=== PATIENT | male | born 1960 | race Caucasian/White ===

== ENCOUNTER 2021-10-14 08:17 | Inpatient (IN) | payer MEDICARE, MEDICAID ==
[2021-10-14] VITALS (25 sets, daily range): BP systolic 100–144; BP diastolic 56–88
[~2021-10-14] VITALS: Ht 165.1 cm; Wt 69.6 kg
[~2021-10-14 08:17] MED LIST: ASCO-157 PO; CALC200T PO; FLUT16SP2 BOTHNARES; LEVO100T PO; LORA10CA PO; MULT-1085 PO; MV-M1TAB19 PO; ceFOXitin 2GM-NS 100mL ADDvant 100 ML IV ONE; famotidine 20mg tablet PO ONE; ringers solution, lacted 1,000 ML IV SCH
[2021-10-14] MEDS ORDERED: BUPIVACAINE liposomal/PF 13.3 MG/ML vial IM ONE (09:13)
[2021-10-14] MEDS ORDERED: BUPIVAcaine 0.5% inj/PF 30 ML ONE (09:13)
[2021-10-14] MEDS ORDERED: LIDOcaine 2% (20mg/ml) 5ml vial ONE (09:16)
[2021-10-14] MEDS ORDERED: propofol inj 20 ML IV ONE (09:16)
[2021-10-14] MEDS ORDERED: rocuronium 10mg/ml inj IV ONE ×2 (09:17→11:18)
[2021-10-14] MEDS ORDERED: ondansetron/PF 4mg/2ml inj ONE (09:22)
[2021-10-14] MEDS ORDERED: glycopyrrolate 0.2mg/ml inj ONE (09:22)
[2021-10-14 09:46] LABS: BASOPHILS % (AUTO) 0.2 % (0-1); EOSINOPHILS % (AUTO) 0.4 % (0-6); LYMPHOCYTES # (AUTO) 1.2 X10'3 (1.1-4.8); LYMPHOCYTES % (AUTO) 17.1 % (21-51); MEAN CORPUSCULAR HEMOGLOBIN 33.9 PG (27.0-31.0); MEAN CORPUSCULAR HGB CONC 34.4 g/dL (33.0-36.5); MEAN CORPUSCULAR VOLUME 98.5 FL (78-98); MEAN PLATELET VOLUME 7.8 FL (7.4-10.4); MONOCYTES # (AUTO) 0.8 X10'3 (0-0.9); MONOCYTES % (AUTO) 11.1 % (2-12); NEUTROPHILS # (AUTO) 5.1 X10'3 (1.8-7.7); NEUTROPHILS % (AUTO) 71.2 % (42-75); PRE OP HEMATOCRIT 44.7 % (42.0-52.0); PRE OP HEMOGLOBIN 15.4 g/dL (14.0-17.9); PRE OP PLATELET COUNT 229 X10'3 (140-440); RED BLOOD COUNT 4.53 X10'6 (4.70-6.10); RED CELL DISTRIBUTION WIDTH 13.5 % (11.5-14.5)
[2021-10-14] MEDS ORDERED: dexamethasone sod phosphate 10mg/ml inj ONE (10:07)
[2021-10-14] MEDS ORDERED: neostigmine methylsulfate 1 MG/ML 10ml vial ONE (10:07)
[2021-10-14] MEDS ORDERED: ePHEDrine 50MG/ML INJ. ONE (10:07)
[2021-10-14] MEDS ORDERED: sevoflurane 250ml liquid IH ONE (10:07)
[2021-10-14 10:12] LABS: ALBUMIN 3.8 G/DL (3.4-5.0); ALBUMIN/GLOBULIN RATIO 1.2 (1.1-1.5); BLOOD UREA NITROGEN 16 MG/DL (7-18); BUN/CREATININE RATIO 11.3 (5.4-32.0); CALCIUM 8.4 MG/DL (8.5-10.1); CHLORIDE 107 MMOL/L (99-107); CREATININE 1.41 MG/DL (0.60-1.10); PRE OP ALT 23 U/L (30-65); PRE OP ANION GAP 11 (8-16); PRE OP AST 17 U/L (10-37); PRE OP BILIRUB, TOTAL 0.8 MG/DL (0.0-1.0); PRE OP GLUCOSE 96 MG/DL (70-104); PRE OP POTASSIUM 3.4 MMOL/L (3.4-5.1); PRE OP SODIUM 143 MMOL/L (135-145); TOTAL CARBON DIOXIDE 24.7 MMOL/L (24-32); TOTAL PROTEIN 7.1 G/DL (6.4-8.2); eGFR 51 ML/MIN
[2021-10-14] MEDS ORDERED: fentaNYL /PF 50mcg/ml 5ml ampule ONE (10:13)
[2021-10-14] MEDS ORDERED: MIDAZolam 1 MG/ML 5ML VIAL ONE (10:13)
[2021-10-14] MEDS ORDERED: morphine 2 MG/ML inj. syringe IV PRN (11:05)
[2021-10-14] MEDS ORDERED: ondansetron/PF 4mg/2ml inj IV PRN (11:05)
[2021-10-14] MEDS ORDERED: ringers solution, lacted 1,000 ML IV SCH (11:05)
[2021-10-14] MEDS ORDERED: fentaNYL/PF 50MCG/1 ML 2ML syringe IV PRN ×2 (11:05)
[2021-10-14] MEDS ORDERED: hydrALAZINE 20mg/ml inj. IV PRN (11:05)
[2021-10-14] MEDS ORDERED: labetalol 20mg/4ml (5mg/ml) syringe IV PRN (11:05)
[2021-10-14] MEDS ORDERED: morphine 4 MG/ML inj SYRINge IV PRN (11:05)
[2021-10-14] MEDS ORDERED: magnesium 2GM in 50ml NS 50 ML IV PRN (11:55)
[2021-10-14] MEDS ORDERED: potassium CL 10mEq/100ml bag 100 ML IV PRN (11:55)
[2021-10-14] MEDS ORDERED: magnesium 4gm in 100ml NS 100 ML IV PRN (11:55)
[2021-10-14] MEDS ORDERED: magnesium Cl slow-release 64mg tablet PO PRN (11:55)
[2021-10-14] MEDS ORDERED: potassium Cl 20 mEq SR tablet PO PRN ×2 (11:55)
--- NOTE | 2021-10-14 12:44 | NUR ---
PT NON VERBAL, ZERO PAIN. 10 LITERS ON MASK, ISLAND DRESSING SPOTTY MARKED AND WILL CONTINUE TO ASSESS, F/C, IV 20G RIGHT WRIST, VSS
--- NOTE | 2021-10-14 12:54 | NUR ---
Received from OR via BED , accompanied by Anesthesiologist DENNIS and report given by Anesthesiolgist. PATIENT NON VERBAL, SHOW NO PAIN. VSS, ISLAND BANDAGE LEATY CIRCLED AND WILL CONTINUE TO ASSESS, F/C, 20G IN RIGHT WRIST Addendum: 10/14/21 at 1256 by Fernanda Cuevas RN Amended: Links added.
--- NOTE | 2021-10-14 13:40 | NUR ---
CALLED TO GIVE REPORT TO SURGICAL. NURSE IS ON LUNCH
--- NOTE | 2021-10-14 14:27 | NUR ---
Patient in room [facility]. I have received report from AWILDA MARTINEZ in recovery and had the opportunity to ask questions and assume patient care.
--- NOTE | 2021-10-14 14:27 | NUR ---
patient arrived with caregiver. Pt has Developmental delay, unable to clearly assess pain, per caregiver, he does not appear in pain. Post op VS started, stable.
[2021-10-14] MEDS: normal saline 1000ml 1,000 ML IV SCH (14:56)
[2021-10-14] MEDS: morphine 2 MG/ML inj. syringe IV PRN ×2 (15:19→19:54)
[2021-10-14 15:48] LABS: MAGNESIUM 1.3 MG/DL (1.5-2.4); POTASSIUM 3.5 MMOL/L (3.5-5.1)
--- NOTE | 2021-10-14 18:00 | NUR ---
Patient in room [facility]. I have received report from JUAN Ocasio and had the opportunity to ask questions and assume patient care.
[2021-10-14] MEDS: K and/or MAG REPLACEMENT MC SCH (20:00)
[2021-10-15] VITALS: BP 102/59
[2021-10-15] MEDS: normal saline 1000ml 1,000 ML IV SCH ×4 (00:05→14:25)
[2021-10-15] MEDS: morphine 2 MG/ML inj. syringe IV PRN ×3 (04:02→10:22)
--- NOTE | 2021-10-15 05:15 | NUR ---
placed FC due to retention and GI surgery. Pt tolerated well.
--- NOTE | 2021-10-15 06:14 | NUR ---
Patient in room [facility]. I have received report from Maryse MARTINEZ and had the opportunity to ask questions and assume patient care.
[2021-10-15 06:37] LABS: BASOPHILS % (AUTO) 0.1 % (0-1); EOSINOPHILS % (AUTO) 0 % (0-6); HEMATOCRIT 32.7 % (42.0-52.0); HEMOGLOBIN 11.3 g/dl (14.0-17.9); LYMPHOCYTES # (AUTO) 0.7 X10'3 (1.1-4.8); LYMPHOCYTES % (AUTO) 4.8 % (21-51); MEAN CORPUSCULAR HEMOGLOBIN 33.9 PG (27.0-31.0); MEAN CORPUSCULAR HGB CONC 34.5 g/dL (33.0-36.5); MEAN CORPUSCULAR VOLUME 98.2 FL (78-98); MONOCYTES # (AUTO) 1.7 X10'3 (0-0.9); MONOCYTES % (AUTO) 12.2 % (2-12); NEUTROPHILS # (AUTO) 11.7 X10'3 (1.8-7.7); NEUTROPHILS % (AUTO) 82.9 % (42-75); PLATELET COUNT 209 X10'3 (140-440); RED BLOOD COUNT 3.33 X10'6 (4.70-6.10); RED CELL DISTRIBUTION WIDTH 13.9 % (11.5-14.5); WHITE BLOOD COUNT 14.1 X10'3 (4.5-11.0)
[2021-10-15] MEDS ORDERED: LIDOcaine 2% 10ml TOPICAL JELLY (Urojet) TP ONE (07:10)
[2021-10-15 07:13] LABS: ALBUMIN 2.5 G/DL (3.4-5.0); ANION GAP 12 (8-16); BLOOD UREA NITROGEN 17 MG/DL (7-18); BUN/CREATININE RATIO 12.5 (5.4-32.0); CALCIUM 7.5 MG/DL (8.5-10.1); CHLORIDE 109 MMOL/L (99-107); CREATININE 1.36 MG/DL (0.60-1.10); GLUCOSE 130 MG/DL (70-104); POTASSIUM 3.8 MMOL/L (3.5-5.1); SODIUM 143 MMOL/L (135-145); TOTAL CARBON DIOXIDE 21.6 MMOL/L (24-32); eGFR 53 ML/MIN
[2021-10-15 08:00] VITALS: BP 91/54
[2021-10-15] MEDS: K and/or MAG REPLACEMENT MC SCH ×2 (08:00→19:10)
[2021-10-15 11:00] VITALS: BP 129/88
[2021-10-15] MEDS ORDERED: normal saline 500ml IV soln 500 ML IV ONE (12:55)
[2021-10-15] MEDS: HYDROcodone/acetaminophen 10/325mg tab PO PRN ×3 (14:25→23:22)
[2021-10-15 18:00] VITALS: BP 93/62
[2021-10-16] VITALS: BP 101/59
[2021-10-16] MEDS: normal saline 1000ml 1,000 ML IV SCH ×3 (00:21→22:35)
[2021-10-16] MEDS: ondansetron/PF 4mg/2ml inj IV PRN (00:57)
[2021-10-16 04:00] VITALS: BP 96/54
[2021-10-16 04:12] LABS: BASOPHILS % (AUTO) 0.1 % (0-1); EOSINOPHILS % (AUTO) 0 % (0-6); HEMATOCRIT 28.8 % (42.0-52.0); HEMOGLOBIN 9.9 g/dl (14.0-17.9); LYMPHOCYTES # (AUTO) 0.7 X10'3 (1.1-4.8); LYMPHOCYTES % (AUTO) 5.6 % (21-51); MEAN CORPUSCULAR HEMOGLOBIN 34.4 PG (27.0-31.0); MEAN CORPUSCULAR HGB CONC 34.4 g/dL (33.0-36.5); MEAN CORPUSCULAR VOLUME 99.8 FL (78-98); MEAN PLATELET VOLUME 8.1 FL (7.4-10.4); MONOCYTES # (AUTO) 1.1 X10'3 (0-0.9); MONOCYTES % (AUTO) 8.5 % (2-12); NEUTROPHILS % (AUTO) 85.8 % (42-75); PLATELET COUNT 190 X10'3 (140-440); RED BLOOD COUNT 2.89 X10'6 (4.70-6.10); RED CELL DISTRIBUTION WIDTH 13.6 % (11.5-14.5); WHITE BLOOD COUNT 12.8 X10'3 (4.5-11.0)
[2021-10-16] MEDS: levoFLOXACIN-Levaquin 500mg/D5 100 ML IV SCH (04:15)
[2021-10-16 04:18] LABS: ALBUMIN 2.1 G/DL (3.4-5.0); ANION GAP 12 (8-16); BLOOD UREA NITROGEN 17 MG/DL (7-18); CALCIUM 7.4 MG/DL (8.5-10.1); CHLORIDE 108 MMOL/L (99-107); CREATININE 1.21 MG/DL (0.60-1.10); GLUCOSE 99 MG/DL (70-104); MAGNESIUM 1.8 MG/DL (1.5-2.4); POTASSIUM 3.6 MMOL/L (3.5-5.1); SODIUM 143 MMOL/L (135-145); TOTAL CARBON DIOXIDE 23.3 MMOL/L (24-32); eGFR 61 ML/MIN
[2021-10-16] MEDS: HYDROcodone/acetaminophen 10/325mg tab PO PRN ×2 (04:20→16:19)
--- NOTE | 2021-10-16 05:18 | NUR ---
CALLED AND LEFT [facility] [place] PEREZ TO ANSWERING SERVICE REGARDING KUB AND CXR RESULTS
[2021-10-16] MEDS: metroNIDAZOLE-Flagyl 500mg/NS 100ml IVPB IV SCH ×2 (05:45→16:19)
--- NOTE | 2021-10-16 06:29 | NUR ---
Patient in room [facility]. I have received report from JUAN Cantrell and had the opportunity to ask questions and assume patient care.
[2021-10-16 07:00] VITALS: BP 102/62
[2021-10-16] MEDS: morphine 2 MG/ML inj. syringe IV PRN ×2 (07:17→22:26)
--- NOTE | 2021-10-16 07:45 | NUR ---
14 setswana NG tube placed per Dr Vinay baldwin. Pt tolerated well, tube secured with silk tape. No output noted at this time, slight amount of sanguinous drainage noted in tubing. Will continue to monitor. Addendum: 10/16/21 at 0747 by Criss Meredith RN NG tube placed to right nare
--- NOTE | 2021-10-16 07:50 | NUR ---
0600 PT LYING IN BED. NO DISTRESS NOTED. PT DENIES PAIN . GERIATRIC NURSE AT BEDSIDE
[2021-10-16] MEDS ORDERED: piperacillin/tazo 3.375gm/50ml 50 ML IV SCH (08:00)
[2021-10-16] MEDS: K and/or MAG REPLACEMENT MC SCH ×2 (08:00→20:00)
[2021-10-16 11:00] VITALS: BP 104/57
--- NOTE | 2021-10-16 16:10 | NUR ---
SHANNAN DC'd per Dr Mclean orders. Pt tolerated well. Will continue to monitor.
[2021-10-16] MEDS: levoTHYROXINE 100mcg tablet PO SCH (17:00)
[2021-10-16 18:00] VITALS: BP 108/59
--- NOTE | 2021-10-16 18:17 | NUR ---
Problems reprioritized. Patient report given, questions answered & plan of care reviewed with JUAN Luong.
--- NOTE | 2021-10-16 18:54 | NUR ---
Patient in room [facility]. I have received report from PATI MARTINEZ and had the opportunity to ask questions and assume patient care. Addendum: 10/16/21 at 1855 by Cherise Vick RN Amended: Links added.
--- NOTE | 2021-10-16 19:06 | NUR ---
Patient in room [facility]. I have received report from JUAN Kahn and had the opportunity to ask questions and assume patient care.
[2021-10-16] MEDS: enoxaparin 40mg/0.4ml syringe SUBCUT SCH (22:27)
[2021-10-17] VITALS: BP 113/61
[2021-10-17] MEDS: metroNIDAZOLE-Flagyl 500mg/NS 100ml IVPB IV SCH ×2 (00:05→07:42)
[2021-10-17] MEDS: morphine 2 MG/ML inj. syringe IV PRN (02:50)
--- NOTE | 2021-10-17 02:55 | NUR ---
medicated for complaint of pain 01/29. repositioned to comfort.
--- NOTE | 2021-10-17 06:23 | NUR ---
Patient in room [facility]. I have received report from JUAN Luong and had the opportunity to ask questions and assume patient care.
--- NOTE | 2021-10-17 06:30 | NUR ---
Problems reprioritized. Patient report given, questions answered & plan of care reviewed with PATI MARTINEZ. Addendum: 10/17/21 at 0630 by Cherise Vick RN Amended: Links added.
--- NOTE | 2021-10-17 06:45 | NUR ---
Problems reprioritized. Patient report given, questions answered & plan of care reviewed with JUAN Kahn.
[2021-10-17 07:17] LABS: BASOPHILS % (AUTO) 0.1 % (0-1); EOSINOPHILS # (AUTO) 0.1 X10'3 (0-0.9); EOSINOPHILS % (AUTO) 0.6 % (0-6); HEMATOCRIT 27.7 % (42.0-52.0); HEMOGLOBIN 9.5 g/dl (14.0-17.9); LYMPHOCYTES # (AUTO) 1.1 X10'3 (1.1-4.8); LYMPHOCYTES % (AUTO) 10.3 % (21-51); MEAN CORPUSCULAR HEMOGLOBIN 34.3 PG (27.0-31.0); MEAN CORPUSCULAR HGB CONC 34.4 g/dL (33.0-36.5); MEAN CORPUSCULAR VOLUME 99.9 FL (78-98); MEAN PLATELET VOLUME 8.4 FL (7.4-10.4); MONOCYTES # (AUTO) 1.1 X10'3 (0-0.9); PLATELET COUNT 182 X10'3 (140-440); RED BLOOD COUNT 2.77 X10'6 (4.70-6.10); RED CELL DISTRIBUTION WIDTH 13.5 % (11.5-14.5); WHITE BLOOD COUNT 10.3 X10'3 (4.5-11.0)
[2021-10-17 07:26] LABS: ALBUMIN 1.9 G/DL (3.4-5.0); ANION GAP 13 (8-16); BLOOD UREA NITROGEN 18 MG/DL (7-18); BUN/CREATININE RATIO 15.9 (5.4-32.0); CALCIUM 7.6 MG/DL (8.5-10.1); CHLORIDE 111 MMOL/L (99-107); CREATININE 1.13 MG/DL (0.60-1.10); GLUCOSE 75 MG/DL (70-104); MAGNESIUM 1.4 MG/DL (1.5-2.4); POTASSIUM 3.7 MMOL/L (3.5-5.1); SODIUM 146 MMOL/L (135-145); TOTAL CARBON DIOXIDE 22.3 MMOL/L (24-32); eGFR 66 ML/MIN
[2021-10-17] MEDS: levoTHYROXINE 100mcg tablet PO SCH (07:42)
[2021-10-17 07:44] VITALS: BP 110/59
[2021-10-17] MEDS: K and/or MAG REPLACEMENT MC SCH ×3 (08:00→19:56)
[2021-10-17] MEDS: HYDROcodone/acetaminophen 10/325mg tab PO PRN (08:43)
[2021-10-17] MEDS: levoFLOXACIN-Levaquin 500mg/D5 100 ML IV SCH (08:43)
[2021-10-17 11:00] VITALS: BP 101/61
[2021-10-17] MEDS: normal saline 1000ml 1,000 ML IV SCH ×2 (11:09→21:53)
[2021-10-17] MEDS ORDERED: magnesium 4gm in 100ml NS 100 ML IV PRN (14:10)
[2021-10-17] MEDS ORDERED: magnesium 2GM in 50ml NS 50 ML IV PRN (14:10)
[2021-10-17] MEDS ORDERED: potassium Cl 20 mEq SR tablet PO PRN ×2 (14:10)
[2021-10-17] MEDS ORDERED: potassium CL 10mEq/100ml bag 100 ML IV PRN (14:10)
[2021-10-17] MEDS ORDERED: magnesium Cl slow-release 64mg tablet PO PRN (14:10)
--- NOTE | 2021-10-17 14:53 | NUR ---
FC DC'd per Dr Mclean orders. 450 straw colored urine drained. Pt tolerated well. Condom cath placed to monitor post FC removal output. Will continue to monitor.
--- NOTE | 2021-10-17 18:35 | NUR ---
Problems reprioritized. Patient report given, questions answered & plan of care reviewed with JUAN Luong.
--- NOTE | 2021-10-17 18:40 | NUR ---
Patient in room [facility]. I have received report from PATI MARTINEZ and had the opportunity to ask questions and assume patient care. Addendum: 10/17/21 at 1840 by Cherise Vick RN Amended: Links added.
[2021-10-17] MEDS: enoxaparin 40mg/0.4ml syringe SUBCUT SCH (19:56)
[2021-10-18] VITALS: BP 111/58
--- NOTE | 2021-10-18 00:15 | NUR ---
complete bed bath and lien change done. bladder scanned 400 in bladder. pt had been denying need for pain medication. after completion of bath etc straight cath procedure done noted took 5 minutes with pt deep breathing before cath place passed sphincter and obtained concentrated dark brownish yellow urine. 400 out.
--- NOTE | 2021-10-18 00:45 | NUR ---
condom cath replaced back on pt after bladder emptied of urine.
[2021-10-18] MEDS: morphine 2 MG/ML inj. syringe IV PRN ×4 (00:50→12:44)
--- NOTE | 2021-10-18 00:50 | NUR ---
after everything completed pt then said ok for pain medication and medicated with iv morphine for the pain.
[2021-10-18] MEDS: ondansetron/PF 4mg/2ml inj IV PRN (04:14)
--- NOTE | 2021-10-18 04:16 | NUR ---
pt medicated for complaint of pain with morphine had peed 30cc in condom cath since straight cathed. pt noted belching air up from his stomach then complaint of nausea and medicated with zofran for this.
[2021-10-18 06:06] LABS: BASOPHILS % (AUTO) 0.2 % (0-1); EOSINOPHILS % (AUTO) 0.2 % (0-6); HEMATOCRIT 27.4 % (42.0-52.0); HEMOGLOBIN 9.3 g/dl (14.0-17.9); LYMPHOCYTES # (AUTO) 0.6 X10'3 (1.1-4.8); LYMPHOCYTES % (AUTO) 6.2 % (21-51); MEAN CORPUSCULAR HEMOGLOBIN 34.4 PG (27.0-31.0); MEAN CORPUSCULAR VOLUME 101.1 FL (78-98); MEAN PLATELET VOLUME 8.1 FL (7.4-10.4); MONOCYTES # (AUTO) 1.1 X10'3 (0-0.9); MONOCYTES % (AUTO) 10.7 % (2-12); NEUTROPHILS # (AUTO) 8.3 X10'3 (1.8-7.7); NEUTROPHILS % (AUTO) 82.7 % (42-75); PLATELET COUNT 191 X10'3 (140-440); RED CELL DISTRIBUTION WIDTH 13.7 % (11.5-14.5); WHITE BLOOD COUNT 10.1 X10'3 (4.5-11.0)
--- NOTE | 2021-10-18 06:16 | NUR ---
Problems reprioritized. Patient report given, questions answered & plan of care reviewed with JUAN GUZMAN. Addendum: 10/18/21 at 0618 by Cherise Vick RN Amended: Links added.
[2021-10-18 06:20] LABS: ALBUMIN 1.8 G/DL (3.4-5.0); ANION GAP 12 (8-16); BLOOD UREA NITROGEN 21 MG/DL (7-18); BUN/CREATININE RATIO 17.4 (5.4-32.0); CALCIUM 7.4 MG/DL (8.5-10.1); CHLORIDE 113 MMOL/L (99-107); CREATININE 1.21 MG/DL (0.60-1.10); GLUCOSE 89 MG/DL (70-104); MAGNESIUM 1.6 MG/DL (1.5-2.4); POTASSIUM 3.5 MMOL/L (3.5-5.1); SODIUM 148 MMOL/L (135-145); TOTAL CARBON DIOXIDE 22.7 MMOL/L (24-32); eGFR 61 ML/MIN
[2021-10-18 07:00] VITALS: BP 112/62
[2021-10-18] MEDS: normal saline 1000ml 1,000 ML IV SCH ×2 (07:23→20:35)
[2021-10-18] MEDS: levoTHYROXINE 100mcg tablet PO SCH (08:00)
[2021-10-18] MEDS: K and/or MAG REPLACEMENT MC SCH ×2 (08:00→20:00)
[2021-10-18] MEDS: levoFLOXACIN-Levaquin 500mg/D5 100 ML IV SCH (08:50)
[2021-10-18] MEDS ORDERED: bisacodyl 10mg suppository rectal RC STA (09:28)
[2021-10-18 11:00] VITALS: BP 101/58
--- NOTE | 2021-10-18 13:00 | NUR ---
patient began coughing while drinking water. only got 2 sips in when he began throwing up. I do not beleive this to be intolerance to clear liquids, based on very small amount water drank and immediately threw up. Pt does not report nausea, and is slightly coughing still. Will monitor through shift for tolerance/intolerance
[2021-10-18] MEDS: metroNIDAZOLE-Flagyl 500mg/NS 100ml IVPB IV SCH (14:57)
--- NOTE | 2021-10-18 16:00 | NUR ---
pt began coughing, requested RT to take a look and listen and give his opinion. O2 was found in the 80's, he placed him on 5L NC, O2 sats up to 91%. Will titrate O2 down as able to. chest xray was ordered and Mucinex started.
[2021-10-18] MEDS: guaiFENesin ER 600mg tablet PO SCH ×2 (17:13→20:38)
--- NOTE | 2021-10-18 18:11 | NUR ---
O2 sat 91% on 5 L NC.
--- NOTE | 2021-10-18 18:11 | NUR ---
Problems reprioritized. Patient report given, questions answered & plan of care reviewed with Cherise MARTINEZ.
--- NOTE | 2021-10-18 18:30 | NUR ---
Patient in room [facility]. I have received report from JUAN GUZMAN and had the opportunity to ask questions and assume patient care. Addendum: 10/18/21 at 1830 by Cherise Vick RN Amended: Links added.
--- NOTE | 2021-10-18 19:11 | NUR ---
Patient in room [facility]. I have received report from JUAN Ocasio and had the opportunity to ask questions and assume patient care.
[2021-10-18 20:00] VITALS: BP 104/70
[2021-10-18] MEDS: HYDROcodone/acetaminophen 10/325mg tab PO PRN (20:37)
[2021-10-18] MEDS: enoxaparin 40mg/0.4ml syringe SUBCUT SCH (20:42)
[2021-10-18] MEDS ORDERED: VANCOMYCIN 1,500MG inj. 1,500 MG in normal saline 500ml IV soln 300 ML IV ONE (21:35)
[2021-10-19] VITALS: BP 99/56
--- NOTE | 2021-10-19 01:30 | NUR ---
second iv started x1 stick for additional ordered iv antibiotics. blankets removed from pt and ice applied for pt comfort due to fever. pt using is poorly despite a lot of teaching and reinforcement barely able to get ball to 250, and using flutter valve fairly well. pt wants to blow instead of suck on the Is unit developmentally delayed seems difficult for him to understand and do but continue to teach and reinforce teaching. caregiver who is pt's neighbor also assisting in trying to help teach and get pt to use it when staff in the room and when we are not.
[2021-10-19] MEDS: metroNIDAZOLE-Flagyl 500mg/NS 100ml IVPB IV SCH (01:47)
[2021-10-19] MEDS: HYDROcodone/acetaminophen 10/325mg tab PO PRN ×2 (01:50→19:44)
[2021-10-19] MEDS: piperacillin/tazo 3.375gm/50ml 50 ML IV SCH ×3 (02:19→16:36)
--- NOTE | 2021-10-19 05:14 | NUR ---
temp 98.7 after cooling measures done.
--- NOTE | 2021-10-19 05:41 | NUR ---
Student documentation: I have reviewed and agree with all interventions, assessments performed and documented by LAUREN URIBE RN STUDENT.Student documentation: I have reviewed and agree with all interventions, assessments performed and documented by LAUREN DERAS RN STUDENT. Addendum: 10/19/21 at 0542 by Cherise Vick RN Amended: Links added.
--- NOTE | 2021-10-19 06:03 | NUR ---
NOTED PT'S ALBUMIN IS 1.8 PT IS SHOWING SIGNS OF GENERALIZED edema. pt c/o feeling dry noted urine dark concentrated yellow starting to lighten up in color now and pt's po intake was 1150 with iv ns intake of 1815 in 24 hours and output mold shifter concentrated urine of 650cc mold shifter 300 days total 950cc 24 hours equal 2014 extra fluid but pt's phelm vert thick and difficult for pt to bring up just starting to loosen up. sodium climbing up to 148 this information given to Dorys Riggs to relay to [facility] hospitalist.
--- NOTE | 2021-10-19 06:21 | NUR ---
Problems reprioritized. Patient report given, questions answered & plan of care reviewed with DAVON MARTINEZ. Addendum: 10/19/21 at 0621 by Cherise Vick RN Amended: Links added.
--- NOTE | 2021-10-19 06:21 | NUR ---
Problems reprioritized. Patient report given, questions answered & plan of care reviewed with JUAN Saul.
[2021-10-19 06:42] LABS: BASOPHILS % (AUTO) 0.1 % (0-1); EOSINOPHILS % (AUTO) 0 % (0-6); HEMOGLOBIN 9.5 g/dl (14.0-17.9); LYMPHOCYTES # (AUTO) 0.7 X10'3 (1.1-4.8); LYMPHOCYTES % (AUTO) 6.2 % (21-51); MEAN CORPUSCULAR HEMOGLOBIN 34.2 PG (27.0-31.0); MEAN CORPUSCULAR VOLUME 100.6 FL (78-98); MEAN PLATELET VOLUME 8.5 FL (7.4-10.4); MONOCYTES # (AUTO) 1.1 X10'3 (0-0.9); MONOCYTES % (AUTO) 10.1 % (2-12); NEUTROPHILS % (AUTO) 83.6 % (42-75); PLATELET COUNT 186 X10'3 (140-440); RED BLOOD COUNT 2.79 X10'6 (4.70-6.10); RED CELL DISTRIBUTION WIDTH 13.8 % (11.5-14.5); WHITE BLOOD COUNT 10.8 X10'3 (4.5-11.0)
--- NOTE | 2021-10-19 06:45 | NUR ---
Patient in room [facility]A. I have received report from JUAN JIANG and had the opportunity to ask questions and assume patient care.
[2021-10-19 07:00] VITALS: BP 99/62
[2021-10-19 07:49] LABS: ALBUMIN 1.8 G/DL (3.4-5.0); ANION GAP 15 (8-16); BLOOD UREA NITROGEN 25 MG/DL (7-18); BUN/CREATININE RATIO 19.4 (5.4-32.0); CALCIUM 7.6 MG/DL (8.5-10.1); CHLORIDE 114 MMOL/L (99-107); CREATININE 1.29 MG/DL (0.60-1.10); GLUCOSE 109 MG/DL (70-104); MAGNESIUM 1.5 MG/DL (1.5-2.4); POTASSIUM 3.6 MMOL/L (3.5-5.1); SODIUM 150 MMOL/L (135-145); eGFR 56 ML/MIN
[2021-10-19] MEDS: K and/or MAG REPLACEMENT MC SCH ×2 (08:00→20:00)
--- NOTE | 2021-10-19 09:09 | NUR ---
Initial: Pt admitted w/ suspicious colonic mass, underwent open resection of transverse and splenic flexure of the colon this admit per EMR. Pt has been advanced to Clear Liquids 10/18 w/ 25% intake of first meal. Recommend continuing to advance to Low fiber diet as medically indicated per MD discretion. LBM 10/18. Limited nutrition interventions at this time, will continue to monitor. Recs: 1. Advance to Low fiber diet as medically indicated per MD discretion 2. Monitor need for ONS upon diet advancement 3. Bowel care per MD 4. Weekly wts Addendum: 10/19/21 at [address] Amended: Links added.
[2021-10-19] MEDS ORDERED: VANCOMYCIN 1GM/200ML IVPB 200 ML IV SCH (10:00)
[2021-10-19] MEDS: levoTHYROXINE 100mcg tablet PO SCH (10:30)
[2021-10-19] MEDS: dextrose 5%-water 1,000 ML IV SCH ×2 (10:30→19:44)
[2021-10-19] MEDS: guaiFENesin ER 600mg tablet PO SCH ×2 (10:30→19:44)
[2021-10-19 11:00] VITALS: BP 103/53
[2021-10-19] MEDS ORDERED: albumin (human) 25% 100 ML IV solution IV ONE (13:25)
--- NOTE | 2021-10-19 18:13 | NUR ---
Problems reprioritized. Patient report given, questions answered & plan of care reviewed with JUAN JIANG.
--- NOTE | 2021-10-19 18:26 | NUR ---
Patient in room [facility]. I have received report from JUAN MAYS and had the opportunity to ask questions and assume patient care. Addendum: 10/19/21 at 1827 by Cherise Vick RN Amended: Links added.
[2021-10-19] MEDS: enoxaparin 40mg/0.4ml syringe SUBCUT SCH (19:45)
[2021-10-19 20:00] VITALS: BP 94/56
[2021-10-20] VITALS: BP 92/52
[2021-10-20] MEDS: piperacillin/tazo 3.375gm/50ml 50 ML IV SCH ×4 (00:38→23:15)
--- NOTE | 2021-10-20 02:59 | NUR ---
CAREGIVER CONCERNED THOUGHT ONE LEG WAS COOLER THAN THE OTHER NOTED LESS COVERS ON THE LEFT LEG. PT REPOSITIONED TO COMFORT AND IS USE AND FLUTTER VALVE DONE WITH HIM. PT USES FLUTTER VALVE WELL AND IS UNIT POORLY BUT HAS IMPROVED COMPARED TO YESTERDAY WITH FLUTTER VALVE USE.
[2021-10-20 04:26] LABS: CLARITY,URINE SLIGHTLY CLOUDY (Clear); COLOR,URINE YELLOW (Yellow); GLUCOSE, URINE NEGATIVE (Neg); KETONES,URINE NEGATIVE (Neg); LEUKOCYTE ESTERASE ,URINE NEGATIVE (Neg); NITRITES, URINE NEGATIVE (Neg); OCCULT BLOOD,URINE MODERATE (Neg); PROTEIN,URINE 100 mg/dl (Neg); UROBILINOGEN,URINE 0.2 E.U/dL (0.2-1.0)
[2021-10-20 05:12] LABS: UA COLLECTION TYPE CLN CATCH MIDSTREAM
[2021-10-20 05:15] LABS: AMORPHOUS URATES 1+; BACTERIA,URINE 1+ /HPF (Neg); MUCUS STRANDS FEW /LPF (Neg); SQUAMOUS EPITHELIAL CELL,UR FEW /LPF (FEW); URIC ACID CRYSTALS 2+ /HPF (NEGATIVE)
[2021-10-20 05:16] LABS: COARSE GRANULAR CAST 0-3 /LPF (NEGATIVE)
--- NOTE | 2021-10-20 05:23 | NUR ---
UA OBTAINED SENT TO THE LAB AND NOTED FLUID INTAKE OF 710CC IV WITH OUTPUT OF 350 CC URINE IN [place] URINE REMAINS CONCENTRATED BUT LESS THAN BEFORE. NOTED FLUID POSITIVE OF 360CC. PT REMAINS WITH GENERALIZED EDEMA. USING IS AND FLUTTER VALVE WITH ENCOURAGEMENT TO MOBILIZE THICK LUNG SECRETIONS.
--- NOTE | 2021-10-20 05:44 | NUR ---
NOTED PT TOOK 1000CC OF PO FLUIDS SO WITH THAT AND IV INTAKE PT IS 1360CC FLUID POSITIVE. SOFTBALL COACH NOTIFIED AND WILL REPORT IT TO DAYSHIFT.
[2021-10-20 06:22] LABS: MAGNESIUM 1.4 MG/DL (1.5-2.4); POTASSIUM 3.1 MMOL/L (3.5-5.1)
--- NOTE | 2021-10-20 06:28 | NUR ---
Problems reprioritized. Patient report given, questions answered & plan of care reviewed with JUAN MAYS. Addendum: 10/20/21 at 0628 by Cherise Vick RN Amended: Links added.
--- NOTE | 2021-10-20 06:45 | NUR ---
Patient in room [facility]A. I have received report from JUAN JIANG and had the opportunity to ask questions and assume patient care.
[2021-10-20 07:00] VITALS: BP 92/53
[2021-10-20] MEDS: K and/or MAG REPLACEMENT MC SCH ×2 (08:00→20:00)
[2021-10-20] MEDS ORDERED: VANCOMYCIN LEVEL IV ONE (09:30)
[2021-10-20] MEDS: levoTHYROXINE 100mcg tablet PO SCH (09:44)
[2021-10-20] MEDS: guaiFENesin ER 600mg tablet PO SCH ×2 (09:45→21:40)
[2021-10-20 11:00] VITALS: BP 95/54
[2021-10-20 12:28] LABS: ALBUMIN 1.9 G/DL (3.4-5.0); ANION GAP 9 (8-16); BLOOD UREA NITROGEN 18 MG/DL (7-18); BUN/CREATININE RATIO 15.1 (5.4-32.0); CALCIUM 7.4 MG/DL (8.5-10.1); CHLORIDE 107 MMOL/L (99-107); CREATININE 1.19 MG/DL (0.60-1.10); GLUCOSE 120 MG/DL (70-104); SODIUM 142 MMOL/L (135-145); TOTAL CARBON DIOXIDE 25.6 MMOL/L (24-32); eGFR 62 ML/MIN
[2021-10-20 12:33] LABS: POTASSIUM 2.9 MMOL/L (3.5-5.1)
--- NOTE | 2021-10-20 12:37 | NUR ---
CRITICAL POTASSIUM 2.9 WILL REPLACE PER PROTOCOL, DR KIM AWAITING CALL BACK PAGER ID: [phone] MESSAGE: DAMIEN QUINTERO 348A: CRITICAL POTASSIUM 2.9 WILL REPLACE PER PROTOCOL. THANKS DAVON [id number]
[2021-10-20] MEDS ORDERED: POTASSIUM CHLORIDE 20 MEQ/15 ML oral solution PO PRN ×2 (12:40→12:41)
--- NOTE | 2021-10-20 13:06 | NUR ---
Dr Mclean rounded on patients would like to saline lock patient but is aware patient was started on D5W because his NA was [address] Mclean orders a NA level and if patients NA is below 140 ok to S/L patient.
[2021-10-20 13:47] LABS: MAGNESIUM 1.4 MG/DL (1.5-2.4)
[2021-10-20] MEDS ORDERED: magnesium 2GM in 50ml NS 50 ML IV PRN (15:20)
[2021-10-20] MEDS ORDERED: potassium Cl 20 mEq SR tablet PO PRN ×2 (15:20)
[2021-10-20] MEDS ORDERED: magnesium 4gm in 100ml NS 100 ML IV PRN (15:20)
--- NOTE | 2021-10-20 18:45 | NUR ---
Problems reprioritized. Patient report given, questions answered & plan of care reviewed with JUAN HONEYCUTT.
[2021-10-20 19:15] VITALS: BP 105/60
[2021-10-20] MEDS: potassium CL 10mEq/100ml bag 100 ML IV PRN ×2 (21:40→23:15)
[2021-10-20] MEDS: enoxaparin 40mg/0.4ml syringe SUBCUT SCH (21:40)
[2021-10-20] MEDS: HYDROcodone/acetaminophen 10/325mg tab PO PRN (23:47)
[2021-10-21] VITALS: BP 94/50
[2021-10-21] MEDS: potassium CL 10mEq/100ml bag 100 ML IV PRN ×2 (03:55→04:48)
[2021-10-21 06:26] LABS: MAGNESIUM 1.4 MG/DL (1.5-2.4); POTASSIUM 3.7 MMOL/L (3.5-5.1)
[2021-10-21] MEDS: guaiFENesin ER 600mg tablet PO SCH ×2 (07:56→20:16)
[2021-10-21] MEDS: piperacillin/tazo 3.375gm/50ml 50 ML IV SCH ×2 (07:56→16:00)
[2021-10-21] MEDS: levoTHYROXINE 100mcg tablet PO SCH (07:56)
[2021-10-21] MEDS: K and/or MAG REPLACEMENT MC SCH ×2 (07:57→20:00)
[2021-10-21 08:00] VITALS: BP 95/56
[2021-10-21 12:00] VITALS: BP 89/53
[2021-10-21] MEDS: magnesium Cl slow-release 64mg tablet PO PRN (14:07)
[2021-10-21] MEDS ORDERED: LIDOcaine 2% 10ml TOPICAL JELLY (Urojet) TP ONE (17:30)
--- NOTE | 2021-10-21 17:59 | NUR ---
16 swedish Mejia catheter inserted. pt. tolerated well. 175ml urine drained after insertion. drainage to gravity. Mejia catheter secured with stat lock.
[2021-10-21 19:00] VITALS: BP 94/57
[2021-10-21] MEDS: enoxaparin 40mg/0.4ml syringe SUBCUT SCH (20:20)
[2021-10-21] MEDS ORDERED: tamsulosin 0.4mg capsule PO SCH (21:00)
[2021-10-22] VITALS: BP 93/56
[2021-10-22] MEDS: piperacillin/tazo 3.375gm/50ml 50 ML IV SCH ×2 (00:39→08:02)
[2021-10-22 07:00] VITALS: BP 98/54
[2021-10-22] MEDS: K and/or MAG REPLACEMENT MC SCH (08:00)
[2021-10-22] MEDS: guaiFENesin ER 600mg tablet PO SCH (08:02)
[2021-10-22] MEDS: levoTHYROXINE 100mcg tablet PO SCH (08:02)
[2021-10-22 08:14] LABS: MAGNESIUM 1.4 MG/DL (1.5-2.4)
[2021-10-22 08:15] LABS: POTASSIUM 3.1 MMOL/L (3.5-5.1)
[2021-10-22] MEDS: magnesium Cl slow-release 64mg tablet PO PRN (11:00)
[2021-10-22 11:06] LABS: BASOPHILS % (AUTO) 0.3 % (0-1); EOSINOPHILS # (AUTO) 0.1 X10'3 (0-0.9); EOSINOPHILS % (AUTO) 0.8 % (0-6); HEMATOCRIT 27.1 % (42.0-52.0); LYMPHOCYTES # (AUTO) 0.7 X10'3 (1.1-4.8); LYMPHOCYTES % (AUTO) 6.2 % (21-51); MEAN CORPUSCULAR HEMOGLOBIN 33.3 PG (27.0-31.0); MEAN CORPUSCULAR HGB CONC 33.2 g/dL (33.0-36.5); MEAN CORPUSCULAR VOLUME 100.3 FL (78-98); MEAN PLATELET VOLUME 9.2 FL (7.4-10.4); MONOCYTES # (AUTO) 1.3 X10'3 (0-0.9); MONOCYTES % (AUTO) 11.2 % (2-12); NEUTROPHILS # (AUTO) 9.6 X10'3 (1.8-7.7); NEUTROPHILS % (AUTO) 81.5 % (42-75); PLATELET COUNT 198 X10'3 (140-440); WHITE BLOOD COUNT 11.8 X10'3 (4.5-11.0)
[2021-10-22 11:19] LABS: ALANINE AMINOTRANSFERASE 33 U/L (12-78); ALBUMIN 1.7 G/DL (3.4-5.0); ALBUMIN/GLOBULIN RATIO 0.5 (1.1-1.5); ALKALINE PHOSPHATASE 62 IU/L (46-116); ANION GAP 8 (8-16); ASPARTATE AMINO TRANSFERASE 31 U/L (10-37); BILIRUBIN,TOTAL 0.5 MG/DL (0.1-1.0); BLOOD UREA NITROGEN 19 MG/DL (7-18); BUN/CREATININE RATIO 17.1 (5.4-32.0); CHLORIDE 107 MMOL/L (99-107); CREATININE 1.11 MG/DL (0.60-1.10); GLUCOSE 104 MG/DL (70-104); POTASSIUM 3.2 MMOL/L (3.5-5.1); SODIUM 142 MMOL/L (135-145); TOTAL CARBON DIOXIDE 26.8 MMOL/L (24-32); TOTAL PROTEIN 5.4 G/DL (6.4-8.2); eGFR 67 ML/MIN
[2021-10-22 12:13] LABS: TOTAL CELLS COUNTED 100
[2021-10-22 12:14] LABS: LARGE PLATELETS FEW; PLATELET ESTIMATE NORMAL
== END 2021-10-22 13:50 | DRG 329 ==
LOC: PAS IN 08:17 → SUR 3N 14:15
PROVIDERS: ADMIT Surgery; ATTEND Surgery
PROC: 0DNU4ZZ Release Omentum, Percutaneous Endoscopic Approach (ICD-10-PCS; 2021-10-14)
PROC: 0DN84ZZ Release Small Intestine, Percutaneous Endoscopic Approach (ICD-10-PCS; 2021-10-14)
PROC: 3E0T3BZ Introduction of Anesthetic Agent into Peripheral Nerves and Plexi, Percutaneous Approach (ICD-10-PCS; 2021-10-14)
PROC: 3E0T33Z Introduction of Anti-inflammatory into Peripheral Nerves and Plexi, Percutaneous Approach (ICD-10-PCS; 2021-10-14)
PROC: 0DBL0ZZ Excision of Transverse Colon, Open Approach (ICD-10-PCS; principal; 2021-10-14 10:07)
DX: D12.6 Benign neoplasm of colon, unspecified (principal); J69.0 Pneumonitis due to inhalation of food and vomit; N17.0 Acute kidney failure with tubular necrosis; D62 Acute posthemorrhagic anemia; E87.0 Hyperosmolality and hypernatremia; E44.0 Moderate protein-calorie malnutrition; E83.42 Hypomagnesemia; E03.9 Hypothyroidism, unspecified; J30.2 Other seasonal allergic rhinitis; R33.9 Retention of urine, unspecified; K66.0 Peritoneal adhesions (postprocedural) (postinfection); Z53.31 Laparoscopic surgical procedure converted to open procedure; Z79.02 Long term (current) use of antithrombotics/antiplatelets; Z68.25 Body mass index [BMI] 25.0-25.9, adult; E87.6 Hypokalemia
CPT/HCPCS: 36415; 71045; 74018; 80048; 80053; 81001; 83605; 83735; 84132; 84443; 85007; 85025; 86885; 86900; 86901; 86920; 87040; 87077; 87081; 87088; 87185; 88307; 92508; 92616; 94668; 97110; 97116; 97161; 97530; A4618; A7000; C1758; C9290; G0378; J0694; J1100; J1650; J1956; J2250; J2270; J2405; J2543; J2704; J2710; J3010; J3370; J3475; J3480; J3490; J7030; J7040; J7070; J7120; P9047; S0020